=== PATIENT | male | born 1985 | race Caucasian/White ===

== ENCOUNTER 2022-06-03 13:14 | Observation (INO) ==
[2022-06-03] MEDS ORDERED: Dexamethasone IV 4 MG/ML VIAL 1 ml VIAL IV SLOW PU ONE (13:19)
[2022-06-03] MEDS ORDERED: Famotidine IV 10 MG/ML 2 ml VIAL (20 mg) IV SLOW PU ONE (13:19)
[2022-06-03] MEDS ORDERED: NS 0.9% 1000 ml BAG 1,000 ML IV ONE (13:20)
[2022-06-03] MEDS ORDERED: EPINEPHrine Anaphylaxis SYR CERTADOSE SYR KIT ONE (13:36)
[2022-06-03] MEDS ORDERED: Famotidine IV 10 MG/ML 2 ml VIAL (20 mg) ONE (13:36)
[2022-06-03 14:36] LABS: Hematocrit 43 % (42-52); Hemoglobin 14.1 g/dL (14.0-18.0); Mean Corpuscular HGB Conc 33 g/dL (31-36); Mean Corpuscular Hemoglobin 30 pg (27-31); Mean Corpuscular Volume 91 fL (80-94); Red Blood Count 4.75 10^6 /uL (4.18-5.48); Red Cell Distribution Width 16 % (10-15); White Blood Count 6.5 10^3/uL (3.5-10.8)
[2022-06-03 15:05] LABS: ABS Lymphocytes 0.1 10^3/ul (1.0-4.8); ABS Monocytes 0.4 10^3/ul (0-0.8); Lymphocyte % 2.2 %; Mean Platelet Volume 9.9 fL (7.4-10.4); Platelet Count 47 10^3/uL (150-450)
[2022-06-03 15:12] LABS: ALT 155 U/L (7-52); AST 236 U/L (13-39); Albumin 4.5 g/dL (3.2-5.2); Albumin/Globulin Ratio 1.5 (1-3); Alkaline Phosphatase 102 U/L (35-149); Anion Gap 16 mmol/L (2-11); Blood Urea Nitrogen 7 mg/dL (6-24); CO2 Carbon Dioxide 23 mmol/L (22-32); Calcium 9.1 mg/dL (8.6-10.3); Chloride 97 mmol/L (101-111); Glucose 101 mg/dL (70-100); Potassium 3.4 mmol/L (3.5-5.0); Sodium 136 mmol/L (135-145); Total Protein 7.5 g/dL (6.4-8.9); eGFR CKD-EPI 117.6 (>60)
[2022-06-03] MEDS ORDERED: Lactated Ringers 1000 ml BAG 1,000 ML IV ONE ×2 (15:15)
[2022-06-03] MEDS ORDERED: LORazepam 2 mg VIAL 1 ml IV PUSH ONE (15:22)
[2022-06-03] MEDS ORDERED: Lorazepam PYXIS KEY PRN ×2 (15:22→19:22)
[2022-06-03 16:03] LABS: Alcohol, S < 13 mg/dL (<13)
[2022-06-03] MEDS ORDERED: Thiamine 100 MG/ML 2 ml VIAL (200 mg) IM ONE (16:37)
[2022-06-03] MEDS ORDERED: Potassium Chlor 20 meq TAB.ER PO ONE (16:59)
[2022-06-03] MEDS: Multivitamins/Minerals TAB PO SCH (18:24)
[2022-06-03] MEDS ORDERED: LORazepam 2 mg VIAL 1 ml IV PUSH PRN (19:22)
[2022-06-03 19:31] LABS: INR 1.08 (0.89-1.11)
[2022-06-03 19:41] LABS: Urine Benzodiazepine Screen None Detected (None Detect); Urine Cannabinoids Screen None Detected (None Detect); Urine Opiates Screen None Detected (None Detect)
[2022-06-03 19:46] LABS: ABS Lymphocytes 0.1 10^3/ul (1.0-4.8); ABS Monocytes 0.1 10^3/ul (0-0.8); ABS Neutrophils 6.4 10^3/ul (1.5-7.7); Hematocrit 41 % (42-52); Hemoglobin 13.3 g/dL (14.0-18.0); Lymphocyte % 1.5 %; Mean Corpuscular HGB Conc 33 g/dL (31-36); Mean Corpuscular Hemoglobin 30 pg (27-31); Mean Corpuscular Volume 91 fL (80-94); Platelet Count 46 10^3/uL (150-450); Red Blood Count 4.48 10^6 /uL (4.18-5.48); Red Cell Distribution Width 16 % (10-15); White Blood Count 6.6 10^3/uL (3.5-10.8)
[2022-06-04 06:27] LABS: ABS Lymphocytes 0.2 10^3/ul (1.0-4.8); ABS Monocytes 0.5 10^3/ul (0-0.8); ABS Neutrophils 5.4 10^3/ul (1.5-7.7); Hematocrit 42 % (42-52); Lymphocyte % 3.6 %; Mean Corpuscular HGB Conc 33 g/dL (31-36); Mean Corpuscular Hemoglobin 30 pg (27-31); Mean Corpuscular Volume 91 fL (80-94); Mean Platelet Volume 10.5 fL (7.4-10.4); Platelet Count 45 10^3/uL (150-450); Red Blood Count 4.61 10^6 /uL (4.18-5.48); Red Cell Distribution Width 16 % (10-15); White Blood Count 6.2 10^3/uL (3.5-10.8)
[2022-06-04 06:55] LABS: Albumin/Globulin Ratio 1.3 (1-3); Calcium 8.7 mg/dL (8.6-10.3); Globulin 3.1 g/dL (2-4); Total Bilirubin 1.4 mg/dL (0.2-1.0); Total Protein 7.1 g/dL (6.4-8.9); eGFR CKD-EPI 128.3 (>60)
[2022-06-04 07:30] VITALS: BP 118/74
[2022-06-04] MEDS: Multivitamins/Minerals TAB PO SCH (08:26)
[2022-06-04 18:59] LABS: Hepatitis B Surface Antigen Nonreactive (Nonreactive)
[2022-06-04 19:04] LABS: Hepatitis A Ab IgM Negative (Negative); Hepatitis B Core IgM Nonreactive (Nonreactive)
[2022-06-04 19:16] LABS: Hepatitis C Antibody Negative (Negative)
== END 2022-06-04 08:35 | disposition left against medical advice (07) ==
LOC: ED 13:14 → EDHOLD 13:14 → MED 19:45
PROVIDERS: ADMIT Internal Medicine; ATTEND Internal Medicine